=== PATIENT | female | born 1995 | race Caucasian/White ===

== ENCOUNTER 2016-05-07 21:12 | Emergency (ER) | payer OTHER ==
[~2016-05-07] VITALS: Ht 157.5 cm; Wt 66.5 kg
[2016-05-07 21:15] VITALS: BP 145/91; PULSE 102; RESP 16; TEMP 97.8; O2SAT 100
[2016-05-07] MEDS ORDERED: ZOLO100T PO (21:21)
[2016-05-07] MEDS ORDERED: ADDE10 PO (21:21)
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
[2016-06-23] MEDS ORDERED: PREN1CAP7 PO (11:46)
[2016-08-12] MEDS ORDERED: CEPH500C PO (09:47)
[2016-09-30] MEDS ORDERED: CLON0.5T PO (09:57)
[2016-09-30] MEDS ORDERED: DEPO150I IM ×2 (10:16→10:17)
[2016-10-01] MEDS ORDERED: DEPO150I (11:04)
== END 2016-05-07 22:00 | disposition home or self-care (01) ==
LOC: PHED 21:12
DX: O9A.212 Injury, poisoning and certain other consequences of external causes complicating pregnancy, second trimester (principal); S16.1XXA Strain of muscle, fascia and tendon at neck level, initial encounter; V49.40XA Driver injured in collision with unspecified motor vehicles in traffic accident, initial encounter; Z3A.22 22 weeks gestation of pregnancy
CPT/HCPCS: 99283

== ENCOUNTER 2016-08-19 12:18 | Inpatient (IN) | payer MEDICAID, OTHER ==
[~2016-08-19 12:18] MED LIST: ADDE10 PO; CEPH500C PO; PREN1CAP7 PO; ZOLO100T PO
[2016-08-19] MEDS ORDERED: MAGNESIUM SULFATE 4 GM PREMIX 100 ML ONE (14:59)
[2016-08-19] MEDS ORDERED: MAGNESIUM SULFATE 40 GM PREMIX 1,000 ML ONE (14:59)
[2016-08-19] MEDS ORDERED: MAGNESIUM SULFATE 4 GM PREMIX 100 ML IV ONE (15:00)
[2016-08-19] MEDS ORDERED: CALCIUM GLUCONATE 10% 1 GM/10 ML VIAL IV PUSH PRN (15:00)
[2016-08-19] MEDS ORDERED: SODIUM CHLORIDE 0.9% FLUSH 10 ML FLUSH IV FLUSH PRN (15:00)
[2016-08-19] MEDS ORDERED: NIFEdipine 10 MG CAP PO PRN ×3 (15:00→16:00)
[2016-08-19] MEDS ORDERED: ONDANSETRON HCL 4 MG/2 ML VIAL IV PRN (15:00)
--- NOTE | 2016-08-19 15:03 | PD ---
HPI Chief Complaint high blood pressure Date Seen: August 19, 2016 Time Seen: 15:00 Travel History International Travel<30 Days: No Contact w/Intl Traveler<30Days: No History of Present Illness HPI 21 y/o at 37/2 weeks presents [facility]. States she was feeling fine before the visit today. [facility] her BP was measured at 150/89. She was then referred to the ED. Pt denies any headache, changes in vision, RUQ pain. Had some leg swelling recently. Denies any vaginal bleeding, loss of fluid, contractions. Endorses movement. Otherwise, denies any other complaints. Denies chest pain, SOB, leg pain. No problems during this . [facility]. No history of hypertension. Normal BPs throughout until today in office. Para: 0 : 1 History Past Medical History Narrative Medical Anxiety ADD Obstetric History Obstetric History Past Surgical History Surgical History: No Previous Surgery Family History Family History: Negative Social History Alcohol Use: No Tobacco Use: Yes (1/2 PPD) Substance Abuse: No Allergies-Medications (Allergen,Severity, Reaction): Coded Allergies: No Known Allergies (Unverified , 08/19/16) Home Meds Active Scripts Cephalexin 500 Mg [id number] Mg PO TID #21 CAP Ref 0 Prov:Rachel Wellington 08/12/16 W/O Vit A W/ Fe Fumar (Citranatal [place])27-1-260 Mg Cap1 Cap PO DAILY #90 CAP Ref 0 Prov:Jono Trotter MD 06/23/16 Reported Medications Sertraline (Zoloft)100 Mg [id number] Mg PO DAILY #30 TAB Ref 0 05/07/16 Amphetamine-Dextroamphetamine (Adderall)10 Mg Tab10 Mg PO DAILY #30 TAB Ref 0 Avoid late evening doses. Space doses at least 4 to 6 hours if more than once/day dosing. 05/07/16 Review of Systems General / Constitutional: Weight Gain, No: Fever, Weight Loss, Chills Eyes: No: Blurred Vision, Visual changes, Pain HENT: No: Headaches, Lightheadedness Cardiovascular: No: Chest Pain or Discomfort, Palpitations Respiratory: No: Cough, Short of Breath Gastrointestinal: No: Nausea, Vomiting, Diarrhea, Abdominal Pain, Constipation Genitourinary: No: Urgency, Frequency, Dysuria, Pelvic Pain, Discharge, Vaginal Bleeding Musculoskeletal: Edema, No: Cramping Skin: No Rash, No Itching Neurologic: No: Weakness, Dizziness Psychiatric: No: Anxiety, Depression Physical Exam Narrative GENERAL: Well-nourished, well-developed patient. SKIN: Warm and dry. HEAD: Normocephalic and atraumatic. EYES: No scleral icterus. No injection or drainage. ENT: No nasal drainage noted. Mucous membranes pink. Airway patent. NECK: Supple, trachea midline. No JVD. CARDIOVASCULAR: Regular rate and rhythm without murmurs, gallops, or rubs. RESPIRATORY: Breath sounds equal bilaterally. No accessory muscle use. ABDOMEN/GI: Abdomen soft, non-tender, bowel sounds present, no rebound, no guarding Gravid to 37 weeks size GENITOURINARY: External Genitalia: intact and normal in appearance Cervix: thick Dilatation: 0 Effacement: 0 Station: -2 Presentation: vertex Membranes: intact Uterine Contractions: none FHT's: Category: 1 Baseline: 140 Reactive: yes Variability: moderate Decels: none EXTREMITIES: 1+ pitting edema up to mid calf bilaterally BACK: Nontender without obvious deformity. No CVA tenderness. NEUROLOGICAL: Awake and alert. 3+ patellar reflexes Data Data Orders Magnesium Sulfate 4 Gm Premix (Magnesium (08/19/16 14:59) MDM Medical Record Reviewed: Yes Interpretation(s) 21 y/o at 37/2 weeks presents from clinic for hypertension. BP 160/126, 167/110 Category 1 FHT Cervical exam: 1/0/-2 Elevated BPs, edema, hyperreflexia on PE - Admit to L&D for preeclampsia - CBC, CMP, uric acid, UA - Start Mg infusion - Give Hydralazine 10mg IV now - Monitor vitals - Cytotec for cervical ripening - Continuous FHT Matt Resendez MD R1 August 19, 2016 15:03
[2016-08-19] MEDS: LACTATED RINGER'S 1000 ML INJ 1,000 ML IV SCH (15:13)
[2016-08-19] MEDS: hydrALAZINE HCL 20 MG/ML VIAL IV PUSH PRN ×2 (15:14→16:24)
[2016-08-19 15:15] LABS: BACTERIA, URINE RARE /hpf; BLOOD, URINE NEG (NEG); GLUCOSE,URINE NEG (NEG); KETONE, URINE NEG (NEG); MUCUS URINE FEW /lpf (OCC); NITRITE,URINE NEG (NEG); SQUAMOUS EPITHELIAL CELL URINE <1 /hpf (0-5); URINE COLOR YELLOW (YELLW/STRAW)
[2016-08-19 15:16] LABS: COMMENT (UR) CATH-CULTURE IND; CULTURE IF INDICATED CATH CULTURE IND
[2016-08-19] MEDS: MAGNESIUM SULFATE 40 GM PREMIX 1,000 ML IV SCH (15:19)
--- NOTE | 2016-08-19 15:30 | HHI.HP ---
History & Physical H&P HPI Chief Complaint high blood pressure Date Seen: August 19, 2016 Time Seen: 15:00 Travel History International Travel<30 Days: No Contact w/Intl Traveler<30Days: No History of Present Illness HPI 21 y/o at 37/2 weeks presents with [facility] blood [facility]. States she was feeling fine before the visit today. [facility] her BP was measured at 150/89. She was then referred to the ED. Pt denies any headache, changes in vision, RUQ pain. Had some leg swelling recently. Denies any vaginal bleeding, loss of fluid, contractions. Endorses movement. Otherwise, denies any other complaints. Denies chest pain, SOB, leg pain. No problems during this . [facility] No history of hypertension. Normal BPs throughout until today in office. Para: 0 : 1 History (Limited) History Past Medical History Narrative Medical Anxiety ADD Obstetric History Obstetric History Past Surgical History Surgical History: No Previous Surgery Family History Family History: Negative Social History Alcohol Use: No Tobacco Use: Yes (/2 PPD) Substance Abuse: No Allergies-Medications Allergies-Medications (Allergen,Severity, Reaction): Coded Allergies: No Known Allergies (Unverified , 08/19/16) Home Meds Active Scripts Cephalexin 500 Mg [id number] Mg PO TID #21 CAP Ref 0 Prov:Rachel Wellington 08/12/16 W/O Vit A W/ Fe Fumar (Citranatal [place])27-1-260 Mg Cap1 Cap PO DAILY #90 CAP Ref 0 Prov:Jono Trotter MD 06/23/16 Reported Medications Sertraline (Zoloft)100 Mg [id number] Mg PO DAILY #30 TAB Ref 0 05/07/16 Amphetamine-Dextroamphetamine (Adderall)10 Mg Tab10 Mg PO DAILY #30 TAB Ref 0 Avoid late evening doses. Space doses at least 4 to 6 hours if more than once/day dosing. 05/07/16 ROS Review of Systems General / Constitutional: Weight Gain, No: Fever, Weight Loss, Chills Eyes: No: Blurred Vision, Visual changes, Pain HENT: No: Headaches, Lightheadedness Cardiovascular: No: Chest Pain or Discomfort, Palpitations Respiratory: No: Cough, Short of Breath Gastrointestinal: No: Nausea, Vomiting, Diarrhea, Abdominal Pain, Constipation Genitourinary: No: Urgency, Frequency, Dysuria, Pelvic Pain, Discharge, Vaginal Bleeding Musculoskeletal: Edema, No: Cramping Skin: No Rash, No Itching Neurologic: No: Weakness, Dizziness Psychiatric: No: Anxiety, Depression Physical Exam Physical Exam Narrative GENERAL: Well-nourished, well-developed patient. SKIN: Warm and dry. HEAD: Normocephalic and atraumatic. EYES: No scleral icterus. No injection or drainage. ENT: No nasal drainage noted. Mucous membranes pink. Airway patent. NECK: Supple, trachea midline. No JVD. CARDIOVASCULAR: Regular rate and rhythm without murmurs, gallops, or rubs. RESPIRATORY: Breath sounds equal bilaterally. No accessory muscle use. ABDOMEN/GI: Abdomen soft, non-tender, bowel sounds present, no rebound, no guarding Gravid to 37 weeks size GENITOURINARY: External Genitalia: intact and normal in appearance Cervix: thick Dilatation: 0 Effacement: 0 Station: -2 Presentation: vertex Membranes: intact Uterine Contractions: none FHT's: Category: 1 Baseline: 140 Reactive: yes Variability: moderate Decels: none EXTREMITIES: 1+ pitting edema up to mid calf bilaterally BACK: Nontender without obvious deformity. No CVA tenderness. NEUROLOGICAL: Awake and alert. 3+ patellar reflexes Data Data Data Orders Magnesium Sulfate 4 Gm Premix (Magnesium (08/19/16 14:59) [facility] Medical Record Reviewed: Yes Interpretation(s) 21 y/o at 37/2 weeks presents from clinic for hypertension. BP 160/126, 167/110 Category 1 FHT Cervical exam: 1/0/-2 Elevated BPs, edema, hyperreflexia on PE - Admit to L&D for preeclampsia - CBC, CMP, uric acid, UA - Start Mg infusion - Give Hydralazine 10mg IV now - Monitor vitals - Cytotec for cervical ripening - Continuous FHT Matt Resendez MD R1 August 19, 2016 15:30
[2016-08-19 15:33] LABS: ANION GAP 11 MEQ/L (5-15); AST (GOT) 23 U/L (15-37); BICARBONATE 22.8 MEQ/L (21.0-32.0); BLOOD UREA NITROGEN 11 MG/DL (7-18); CHLORIDE 106 MEQ/L (98-107); GLOMERULAR FILTRATION RATE 162 ML/MIN (>89); POTASSIUM 4.2 MEQ/L (3.5-5.1); SODIUM (NA) 140 MEQ/L (136-145)
[2016-08-19 15:37] LABS: ALKALINE PHOSPHATASE 175 U/L (45-117); ALT (GPT) 19 U/L (10-53); TOTAL BILIRUBIN ADULT 0.3 MG/DL (0.2-1.0); URIC ACID 4.6 MG/DL (2.6-6.0)
--- NOTE | 2016-08-19 15:46 | HHI.HP ---
History & Physical H&P Patient is a 21-year-old white female at 37 weeks sent over by Cherry Wellington for elevated blood pressures, she's had no other complaints or problems. heart rate tracing is reactive and she is not scott at this time. Her blood pressures 160/110 and she has no history of hypertension until just this last week or so when it started to go up. Patient denies headache blurry vision spots in front of her eyes right upper quadrant pain however she does have frequent with swelling. Laboratory and urinalysis are negative for preeclamptic signs or problems no protein in the urine she does have 3-4+ pitting edema in the pretibial areas and 3+ DTRs. Cervix is 1 cm thick and high vertex presentation noted Impression-- -induced hypertension Plan--cervical ripening and induction of labor for PIH Alex Cottrell II, MD August 19, 2016 15:46
[2016-08-19] MEDS ORDERED: MISOPROSTOL 100 MCG TAB VAGINAL ONE (16:00)
[2016-08-19] MEDS ORDERED: LABETALOL HCL 100 MG/20 ML VIAL IV PUSH PRN ×3 (16:00→18:30)
[2016-08-19] MEDS ORDERED: LABETALOL HCL 100 MG/20 ML VIAL ONE (17:13)
[2016-08-19 18:11] LABS: HEMATOCRIT 34.4 % (35.0-46.0); MEAN CELL VOLUME 79.6 FL (80.0-100.0); MEAN CORPUSCULAR HEMOGLOBIN 25.4 PG (27.0-34.0); MEAN CORPUSCULAR HGB CONC 31.9 % (32.0-36.0); PLATELET COUNT 205 TH/MM3 (150-450); RED BLOOD COUNT 4.32 MIL/MM3 (4.00-5.30); RED CELL DISTRIBUTION WIDTH 14.5 % (11.6-17.2); REVIEW FLAG FINAL; WHITE BLOOD COUNT 11.2 TH/MM3 (4.0-11.0)
[2016-08-19] MEDS: DEXTROAMPHETAMINE/AMPHETAMINE 10 MG TAB PO SCH (18:21)
[2016-08-19] MEDS: SODIUM CHLORIDE 0.9% FLUSH 10 ML FLUSH IV FLUSH SCH (21:00)
[2016-08-19] MEDS: MISOPROSTOL 25 MCG SUPP VAGINAL SCH (21:01)
[2016-08-19] MEDS: SERTRALINE HCL 50 MG TAB PO SCH (21:01)
[2016-08-19] MEDS: ACETAMINOPHEN 325 MG TAB PO PRN (21:34)
[2016-08-20] VITALS (125 sets, daily range): BP systolic 112–159; BP diastolic 66–117; PULSE 81–242; RESP 5–20; TEMP 97.9–99.1
[2016-08-20] MEDS: MISOPROSTOL 25 MCG SUPP VAGINAL SCH ×6 (01:09→20:00)
[2016-08-20] MEDS: LACTATED RINGER'S 1000 ML INJ 1,000 ML IV SCH ×4 (04:18→18:01)
[2016-08-20] MEDS: ACETAMINOPHEN 325 MG TAB PO PRN (04:59)
--- NOTE | 2016-08-20 08:00 | PD.LABORPN ---
Subjective Subjective HD # 2 BPs -140s/90s AROM clear ,IUPC FSE inserted , cx 2-3/60/-3/ vtx FHR reactive + CTXs seen Begin pit augmentation Objective Objective Pelvic Exam: Cervix: [-] Dilatation: [2-3-] Effacement: [-60] Station: [-3] Presentation: [-vtx] Membranes: [ ruptured]AROM Uterine Contractions: [+] FHT's: Category: [1-] Baseline: [-133] Reactive: [yes-] Variability: [mod-] Decels: [0-] Alex Cottrell II, MD August 20, 2016 08:00
[2016-08-20] MEDS ORDERED: LACTATED RINGER'S 1000 ML INJ 1,000 ML IV PRN (08:01)
[2016-08-20] MEDS ORDERED: MINERAL OIL 10 ML VIAL TOPICAL PRN (08:15)
[2016-08-20] MEDS ORDERED: SODIUM CHLORID 0.9% 500 ML INJ 500 ML IV PRN (08:15)
[2016-08-20] MEDS ORDERED: CITRIC ACID-SODIUM CITRATE LIQ 30 ML UDC PO SCH (08:15)
[2016-08-20] MEDS ORDERED: OXYTOCIN 30 UNITS-500ML PREMIX 500 ML IV SCH (08:15)
[2016-08-20] MEDS ORDERED: OXYTOCIN 30 UNITS-500ML PREMIX 500 ML IV ONE (08:15)
[2016-08-20] MEDS ORDERED: LIDOCAINE HCL 1% 50 ML VIAL I-DERMAL PRN (08:15)
[2016-08-20] MEDS ORDERED: LIDOCAINE HCL 1% 50 ML VIAL INFIL PRN (08:15)
[2016-08-20] MEDS ORDERED: SODIUM CHLOR 0.9% 1000 ML INJ 1,000 ML IV PRN (08:21)
[2016-08-20] MEDS: DEXTROAMPHETAMINE/AMPHETAMINE 30 MG TAB PO SCH (09:00)
[2016-08-20] MEDS: SODIUM CHLORIDE 0.9% FLUSH 10 ML FLUSH IV FLUSH SCH ×2 (09:00→21:00)
--- NOTE | 2016-08-20 10:33 | PD.LABORPN ---
Subjective Subjective Changing shifts Dr. Paetl coming on duty; chart reviewed. This patient is a 21 -year-old 1 para 0 presently at 37+ weeks who was seen in the office yesterday found to have an elevated blood pressure Sent over to triage for further evaluation Laboratory data were normal Liver function studies were not elevated urine negative for protein Count 205 Presently the patient is resting comfortably she is on magnesium sulfate at 2 g per hour Pitocin presently at 4 milliunits internal monitoring present IUPC and scalp electrode States at some point that she would desire an epidural Patient is presently on Adderall she states she takes 30 mg in the morning and 15 mg in the evening her last dose of Adderall was yesterday evening Objective Vital Signs Vital Signs Date Time Temp Pulse Resp B/P Pulse Ox O2 Delivery O2 Flow Rate FiO2 08/20/16 09:45 97.9 20 08/20/16 09:40 96 08/20/16 09:36 84 135/82 08/20/16 09:35 87 08/20/16 09:30 91 08/20/16 09:28 81 147/95 08/20/16 09:27 86 08/20/16 09:25 92 08/20/16 09:20 85 08/20/16 09:15 90 08/20/16 09:10 87 08/20/16 09:05 92 08/20/16 09:01 85 147/109 08/20/16 09:00 100 08/20/16 08:45 131/85 08/20/16 08:40 93 08/20/16 08:35 92 08/20/16 08:30 89 08/20/16 08:14 18 08/20/16 08:14 5 08/20/16 08:10 97 08/20/16 08:05 93 08/20/16 08:01 93 118/83 08/20/16 08:00 90 Objective Pelvic Exam: Cervix: [-] Midline Dilatation: [-] 4 cm Effacement: [-] 90% effaced Station: [-] -1 station Presentation: [-] Vertex's with a small amount of What Membranes: [ ruptured previously artificial rupture of membranes with placement of the internal catheters fluid is clear Uterine Contractions: [-] Every 2-3 minutes at greater than 50 mmHg FHT's: Category: [-] 1 Baseline: [-]130 Reactive: [-]+ Accelerations up to 160 Variability: [-] Moderate ongk-[id number] variability Decels: [-] 0 Assessment/Plan Assessment and Plan Assessment; 21-year-old at 37 weeks Category 1 tracing PIH Cigarette smoker GBS is negative History of ADD presently on Adderall Progression of labor Plan; Continue present management Epidural at patient's request Anticipate vaginal delivery Anne Sanchez MD August 20, 2016 10:33
[2016-08-20] MEDS ORDERED: fentaNYL 2MCG-BUPIV 0.125% INJ 100 ML ONE (10:44)
[2016-08-20] MEDS ORDERED: LABETALOL HCL 100 MG/20 ML VIAL IV PUSH PRN (11:00)
[2016-08-20] MEDS ORDERED: ePHEDrine/NS 25 MG/5 ML SYR ONE (11:25)
[2016-08-20] MEDS: MAGNESIUM SULFATE 40 GM PREMIX 1,000 ML IV SCH (11:50)
[2016-08-20] MEDS ORDERED: ePHEDrine/NS 25 MG/5 ML SYR IV PRN (12:00)
[2016-08-20] MEDS ORDERED: DO NOT ADMINISTER ANTICOAGULANTS PRN (12:00)
[2016-08-20] MEDS ORDERED: fentaNYL 2MCG-BUPIV 0.125% 100 ML EPIDURAL SCH (12:00)
[2016-08-20] MEDS ORDERED: NO SYSTEM NARCOTICS PRN (12:00)
--- NOTE | 2016-08-20 13:59 | PD.LABORPN ---
Subjective Subjective Patient is comfortable with an epidural Objective Vital Signs Vital Signs Date Time Temp Pulse Resp B/P Pulse Ox O2 Delivery O2 Flow Rate FiO2 08/20/16 12:55 85 08/20/16 12:50 87 08/20/16 12:45 83 08/20/16 12:45 97.9 94 18 134/96 08/20/16 12:40 85 08/20/16 12:35 84 08/20/16 12:30 89 08/20/16 12:30 87 138/96 08/20/16 12:25 84 08/20/16 12:20 89 08/20/16 12:15 86 135/92 08/20/16 12:15 89 08/20/16 10:10 97 08/20/16 10:05 96 08/20/16 10:00 86 08/20/16 10:00 91 132/84 08/20/16 09:45 97.9 20 08/20/16 09:40 96 08/20/16 09:36 84 135/82 08/20/16 09:35 87 08/20/16 09:30 91 08/20/16 09:28 81 147/95 08/20/16 09:27 86 08/20/16 09:25 92 08/20/16 09:20 85 08/20/16 09:15 90 08/20/16 09:10 87 08/20/16 09:05 92 08/20/16 09:01 85 147/109 08/20/16 09:00 100 08/20/16 08:45 131/85 08/20/16 08:40 93 08/20/16 08:35 92 08/20/16 08:30 89 08/20/16 08:14 18 08/20/16 08:14 5 08/20/16 08:10 97 08/20/16 08:05 93 08/20/16 08:01 93 118/83 08/20/16 08:00 90 Objective Pelvic Exam: Cervix: [-] Midline Dilatation: [-] 6 cm Effacement: [-] 100% effaced Station: [-] -1 Presentation: [-] Vertex small amount of Membrane ruptured] Uterine Contractions: [-] Q3 to 4 minutes FHT's: Category: [-] Fluctuates between category 1 and 2 Baseline: [-] 130 Reactive: [-] + Positive accelerations as well as accelerations with acoustic stimulation Variability: [-] Moderate afpp-ia-qrfi variability Decels: [-] Early to variable decelerations Assessment/Plan Assessment and Plan Assessment Progression of labor Variable decelerations Plan Positional change IV fluid hydration Amnioinfusion Close monitoring Anne Sanchez MD August 20, 2016 13:59
--- NOTE | 2016-08-20 14:20 | PD.LABORPN ---
Subjective Subjective Patient continues to be comfortable with her epidural she is starting to feel pressure Objective Vital Signs Vital Signs Date Time Temp Pulse Resp B/P Pulse Ox O2 Delivery O2 Flow Rate FiO2 08/20/16 13:40 88 08/20/16 12:55 85 08/20/16 12:50 87 08/20/16 12:45 83 08/20/16 12:45 97.9 94 18 134/96 08/20/16 12:40 85 08/20/16 12:35 84 08/20/16 12:30 89 08/20/16 12:30 87 138/96 08/20/16 12:25 84 08/20/16 12:20 89 08/20/16 12:15 86 135/92 08/20/16 12:15 89 08/20/16 10:10 97 08/20/16 10:05 96 08/20/16 10:00 86 08/20/16 10:00 91 132/84 08/20/16 09:45 97.9 20 08/20/16 09:40 96 08/20/16 09:36 84 135/82 08/20/16 09:35 87 08/20/16 09:30 91 08/20/16 09:28 81 147/95 08/20/16 09:27 86 08/20/16 09:25 92 08/20/16 09:20 85 08/20/16 09:15 90 08/20/16 09:10 87 08/20/16 09:05 92 08/20/16 09:01 85 147/109 08/20/16 09:00 100 08/20/16 08:45 131/85 08/20/16 08:40 93 08/20/16 08:35 92 08/20/16 08:30 89 08/20/16 08:14 18 08/20/16 08:14 5 08/20/16 08:10 97 08/20/16 08:05 93 08/20/16 08:01 93 118/83 08/20/16 08:00 90 Objective Pelvic Exam: Cervix: [-] Midline Dilatation: [-] 8 cm Effacement: [-] 100% effaced Station: [-] -1 station Presentation: [-] Vertex with some molding Membranes: ruptured] Uterine Contractions: [-] Every 2-4 FHT's: Category: [-] 2 Baseline: [-] 130 Reactive: [-] + Variability: [-] Moderate [id number] variability Decels: [-] Variables to continue to be early to variable Amnioinfusion running Assessment/Plan Assessment and Plan Assessment Progression of labor Amnioinfusion running presently Variable decelerations Plan Continue with positional changes Amnioinfusion Pitocin discontinued O2 IV fluids hydration Anne Sanchez MD August 20, 2016 14:20
[2016-08-20] MEDS: DEXTROAMPHETAMINE/AMPHETAMINE 10 MG TAB PO SCH (15:00)
[2016-08-20] MEDS ORDERED: DIPHTH/TETANUS/ACEL PERTUSSIS (BOOSTER) 0.5 ML VIAL/PFS IM ONE (16:00)
[2016-08-20] MEDS ORDERED: MEASLES, MUMPS, RUBELLA VACCINE 0.5 ML VIAL SQ ONE (16:00)
--- NOTE | 2016-08-20 18:56 | PD.LABORPN ---
Subjective Subjective Patient feeling more pressure uncomfortable with the contractions Objective Vital Signs Vital Signs Date Time Temp Pulse Resp B/P Pulse Ox O2 Delivery O2 Flow Rate FiO2 08/20/16 18:30 104 08/20/16 18:30 114 144/100 08/20/16 18:25 113 08/20/16 18:23 113 152/99 08/20/16 18:20 120 08/20/16 18:15 126 08/20/16 18:15 113 159/117 08/20/16 18:02 18 08/20/16 17:30 97 141/85 08/20/16 17:30 97 08/20/16 17:25 90 08/20/16 17:20 95 08/20/16 17:15 92 08/20/16 17:15 91 138/89 08/20/16 17:10 88 08/20/16 17:05 88 08/20/16 17:00 88 131/90 08/20/16 17:00 91 08/20/16 16:40 102 08/20/16 16:35 95 08/20/16 16:30 97 133/93 08/20/16 16:30 100 08/20/16 16:20 107 08/20/16 16:15 105 08/20/16 16:15 105 139/100 08/20/16 16:10 90 08/20/16 16:05 95 08/20/16 16:00 102 08/20/16 16:00 102 128/66 08/20/16 15:55 100 08/20/16 15:50 100 08/20/16 15:45 16 08/20/16 15:45 97 112/67 08/20/16 15:45 95 08/20/16 15:41 98.6 08/20/16 15:40 98 08/20/16 15:35 106 08/20/16 15:30 96 08/20/16 15:30 99 137/86 08/20/16 15:25 95 08/20/16 15:20 99 08/20/16 15:15 93 08/20/16 15:15 98 138/86 08/20/16 15:10 106 08/20/16 15:05 104 08/20/16 15:00 105 08/20/16 15:00 118 149/99 08/20/16 14:55 104 08/20/16 14:51 95 150/91 08/20/16 14:50 99 08/20/16 14:45 96 08/20/16 14:45 97 08/20/16 14:43 98.6 20 08/20/16 14:34 98 131/83 08/20/16 14:31 94 08/20/16 14:30 90 08/20/16 14:25 95 08/20/16 14:20 97 08/20/16 14:15 103 140/92 08/20/16 14:15 89 08/20/16 14:10 92 08/20/16 14:06 97 121/72 08/20/16 14:05 94 08/20/16 14:00 94 141/109 08/20/16 14:00 242 08/20/16 13:55 84 08/20/16 13:50 100 08/20/16 13:45 96 08/20/16 13:45 93 137/83 08/20/16 13:40 88 08/20/16 13:25 88 08/20/16 13:20 93 08/20/16 13:15 84 115/82 08/20/16 13:15 82 08/20/16 12:55 85 08/20/16 12:50 87 08/20/16 12:45 83 08/20/16 12:45 97.9 94 18 134/96 08/20/16 12:40 85 08/20/16 12:35 84 08/20/16 12:30 89 08/20/16 12:30 87 138/96 08/20/16 12:25 84 08/20/16 12:20 89 08/20/16 12:15 86 135/92 08/20/16 12:15 89 Objective Pelvic Exam: Cervix: [-] Dilatation: [-] 10 cm small anterior lip Effacement: [-] 100% Station: [-] +1 station Presentation: [-] Vertex Membranes: ruptured] Uterine Contractions: [-] 2-3 minutes FHT's: Category: [-] 2 Baseline: [-] 130 Reactive: [-] + Positive accelerations Variability: [-] Moderate [id number]-om-ljng variability Decels: [-] Patient having variable decelerations with contractions starting to push Assessment/Plan Assessment and Plan Monitor patient closely in the second stage of labor Anticipate vaginal delivery No meconium Anne Sanchez MD August 20, 2016 18:56
[2016-08-20] MEDS: SERTRALINE HCL 50 MG TAB PO SCH (21:00)
--- NOTE | 2016-08-20 21:28 | PD.OB.DELI ---
Delivery Date: August 20, 2016 Anesthesia: Epidural Episiotomy: Midline Vaginal Delivery: Normal Presentation: Occiput anterior Nuchal Cord: None Delayed cord clamping (45 sec): No Infant: Female One Minute : 7 Five Minute : 8 Weight: 3090 Placenta: Spontaneous delivery, Intact, 3 vessel cord Laceration: Episiotomy Repair: Chromic running Additional Information Patient progressed to completely dilated completely effaced at a +4 station delivered over midline episiotomy a viable female infant weight 6 lbs. 13 oz.= 3090 grams. No delayed cord clamping as the baby was somewhat limits secondary to magnesium sulfate cord doubly clamped and cut and infant handed over to the waiting nursing staff Within the delivered spontaneously and intact No lacerations Estimated blood loss 150 cc uterus firm no active bleeding Midline episiotomy repaired with 2-0 chromic suture under local lidocaine infiltration no extension of the episiotomy Baby with Apgars of 7 at 1 minute and 8 at 5 minutes Mother stable baby stable We'll continue mother on magnesium sulfate for 24 hours An catheter replaced urine is clear and adequate Anne Sanchez MD August 20, 2016 21:28
[2016-08-20] MEDS ORDERED: ONDANSETRON ODT 4 MG TAB PO PRN (21:30)
[2016-08-20] MEDS ORDERED: BENZOCAINE 20% TOPICAL SPRAY 60 ML CAN TOPICAL PRN (21:30)
[2016-08-20] MEDS ORDERED: DOCUSATE SODIUM 50 MG/SENNA 8.6 MG TAB PO PRN (21:30)
[2016-08-20] MEDS ORDERED: oxyCODONE/ACETAMINOPHEN 5 MG/325 MG TAB PO PRN ×2 (21:30)
[2016-08-20] MEDS ORDERED: WITCH HAZEL 50%/GLYCERIN 12.5% 40 PAD JAR TOPICAL PRN (21:30)
[2016-08-20] MEDS ORDERED: ACETAMINOPHEN 325 MG TAB PO PRN (21:30)
[2016-08-20] MEDS ORDERED: ZOLPIDEM TARTRATE 5 MG TAB PO PRN (21:30)
[2016-08-20] MEDS ORDERED: IBUPROFEN 600 MG TAB PO PRN (21:30)
[2016-08-20] MEDS ORDERED: ALUMINUM/MAGNESIUM/SIMETH 30 ML CUP PO PRN (21:30)
[2016-08-20] MEDS ORDERED: AMMONIA AROMATIC INHALANT 0.33 ML ONE (23:08)
[2016-08-21] VITALS (96 sets, daily range): BP systolic 106–137; BP diastolic 60–92; PULSE 81–107; RESP 16–18; TEMP 97.8–98.3; O2SAT 99–100
[2016-08-21] MEDS: MISOPROSTOL 25 MCG SUPP VAGINAL SCH ×4 (08:00→20:00)
[2016-08-21] MEDS: SODIUM CHLORIDE 0.9% FLUSH 10 ML FLUSH IV FLUSH SCH ×2 (09:00→20:31)
[2016-08-21] MEDS: MAGNESIUM SULFATE 40 GM PREMIX 1,000 ML IV SCH ×2 (09:20→13:25)
--- NOTE | 2016-08-21 09:44 | HHI.OB ---
Subjective Post Day: 1 Remarks The patient is a 21-year-old G1 now P1, who was induced at 37 weeks for preeclampsia. She delivered on 08/20/2016, at approximately 2100 hrs. She is on magnesium gtt, and her blood pressures have normalized and are at goal. She denies any headaches, change in vision, chest pain, palpitations, shortness of breath, or pain under her ribs. She had a puddle of blood on the bed overnight. The bleeding has since gotten less. (Waqar Callahan MD R2) Remarks I rounded on the patient. I rounded with the resident. I reviewed the resident' s assessment and plan of care for this patient. I am in agreement with the plan of care for this patient. (Anne Sanchez MD) Objective Vitals/I&O Vital Signs Date Time Temp Pulse Resp B/P Pulse Ox O2 Delivery O2 Flow Rate FiO2 08/21/16 09:11 97.8 08/21/16 09:00 81 106/64 08/21/16 08:00 86 113/60 08/21/16 07:00 87 114/63 08/21/16 06:00 95 116/83 08/21/16 05:00 96 116/80 08/21/16 04:00 98.0 18 08/21/16 04:00 96 120/79 08/21/16 03:00 93 131/91 08/21/16 02:00 96 125/76 08/21/16 01:00 97 137/90 08/21/16 00:00 93 129/81 08/20/16 23:30 98.9 18 08/20/16 23:28 98 135/85 08/20/16 22:30 101 136/83 08/20/16 22:15 102 144/96 08/20/16 22:00 101 145/95 08/20/16 22:00 18 08/20/16 21:47 102 144/97 08/20/16 21:45 18 08/20/16 21:32 145/92 08/20/16 21:25 107 128/72 08/20/16 21:25 99.1 08/20/16 20:31 98.1 08/20/16 20:25 126 08/20/16 20:20 114 5/12/17 20:15 121 08/20/16 20:15 102 150/94 08/20/16 20:10 104 08/20/16 20:05 100 08/20/16 20:00 96 08/20/16 20:00 109 140/93 08/20/16 19:55 97 08/20/16 19:50 94 08/20/16 19:45 100 146/92 08/20/16 19:45 93 08/20/16 19:40 102 08/20/16 19:35 100 08/20/16 19:30 102 149/93 08/20/16 19:30 100 08/20/16 19:25 104 08/20/16 19:20 108 08/20/16 19:15 109 08/20/16 19:15 123 151/97 08/20/16 19:10 103 08/20/16 19:05 103 08/20/16 19:00 105 08/20/16 19:00 112 152/95 08/20/16 18:55 108 08/20/16 18:51 111 155/105 08/20/16 18:50 107 08/20/16 18:45 102 08/20/16 18:40 97 08/20/16 18:35 112 08/20/16 18:30 104 08/20/16 18:30 114 144/100 08/20/16 18:25 113 08/20/16 18:23 113 152/99 08/20/16 18:20 120 08/20/16 18:15 126 08/20/16 18:15 113 159/117 08/20/16 18:10 100 08/20/16 18:02 18 08/20/16 17:30 97 141/85 08/20/16 17:30 97 08/20/16 17:25 90 08/20/16 17:20 95 08/20/16 17:15 92 08/20/16 17:15 91 138/89 08/20/16 17:10 88 08/20/16 17:05 88 08/20/16 17:00 88 131/90 08/20/16 17:00 91 08/20/16 16:40 102 08/20/16 16:35 95 08/20/16 16:30 97 133/93 08/20/16 16:30 100 08/20/16 16:20 107 08/20/16 16:15 105 08/20/16 16:15 105 139/100 08/20/16 16:10 90 08/20/16 16:05 95 08/20/16 16:00 102 08/20/16 16:00 102 128/66 08/20/16 15:55 100 08/20/16 15:50 100 08/20/16 15:45 16 08/20/16 15:45 97 112/67 08/20/16 15:45 95 08/20/16 15:41 98.6 08/20/16 15:40 98 08/20/16 15:35 106 08/20/16 15:30 96 08/20/16 15:30 99 137/86 08/20/16 15:25 95 08/20/16 15:20 99 08/20/16 15:15 93 08/20/16 15:15 98 138/86 08/20/16 15:10 106 08/20/16 15:05 104 08/20/16 15:00 105 08/20/16 15:00 118 149/99 08/20/16 14:55 104 08/20/16 14:51 95 150/91 08/20/16 14:50 99 08/20/16 14:45 96 08/20/16 14:45 97 08/20/16 14:43 98.6 20 08/20/16 14:34 98 131/83 08/20/16 14:31 94 08/20/16 14:30 90 08/20/16 14:25 95 08/20/16 14:20 97 08/20/16 14:15 103 140/92 08/20/16 14:15 89 08/20/16 14:10 92 08/20/16 14:06 97 121/72 08/20/16 14:05 94 08/20/16 14:00 94 141/109 08/20/16 14:00 242 08/20/16 13:55 84 08/20/16 13:50 100 08/20/16 13:45 96 08/20/16 13:45 93 137/83 08/20/16 13:40 88 08/20/16 13:25 88 08/20/16 13:20 93 08/20/16 13:15 84 115/82 08/20/16 13:15 82 5/12/17 12:55 85 08/20/16 12:50 87 08/20/16 12:45 83 08/20/16 12:45 97.9 94 18 134/96 08/20/16 12:40 85 08/20/16 12:35 84 08/20/16 12:30 89 08/20/16 12:30 87 138/96 08/20/16 12:25 84 08/20/16 12:20 89 08/20/16 12:15 86 135/92 08/20/16 12:15 89 08/20/16 10:10 97 08/20/16 10:05 96 08/20/16 10:00 86 08/20/16 10:00 91 132/84 08/20/16 09:45 97.9 20 08/20/16 09:40 96 Objective Remarks GENERAL: Well-nourished, well-developed patient. CARDIOVASCULAR: Regular rate and rhythm without murmurs, gallops, or rubs. RESPIRATORY: Breath sounds equal bilaterally. No accessory muscle use. ABDOMEN/GI: Abdomen soft, non-tender. Fundus: Firm, non-tender at umbilicus. GENITOURINARY: Light to moderate bleeding. EXTREMITIES: No cyanosis or edema, non-tender, without signs of DVT. Medications and IVs Current Medications Medications (Trade) Dose Ordered Sig/Farzad Route Start Time Stop Time Status Last Admin (NS Flush) 2 ml UNSCH PRN IV FLUSH 08/19/16 15:00 Sodium Chloride 2 ml 2 ml BID IV FLUSH 08/19/16 21:00 (Magnesium Sulfate 40 Gm Premix) 1,000 ml @ 50 mls/hr Q20H IV 08/19/16 14:58 08/21/16 09:20 (Calcium Gluconate Inj) 1 gm UNSCH PRN IV PUSH 08/19/16 15:00 (Zofran Inj) 4 mg Q6H PRN IV 08/19/16 15:00 08/20/16 08:31 (Cytotec Supp) 25 mcg Q4H VAGINAL 08/19/16 20:00 08/20/16 04:56 (Zoloft) 50 mg HS PO 08/19/16 21:00 08/19/16 21:01 (Adderall) 30 mg DAILY PO 08/20/16 09:00 (Adderall) 15 mg DAILY@15 PO 08/19/16 15:00 08/19/16 18:21 Acetaminophen 650 mg 650 mg Q4H PRN PO 08/19/16 21:30 08/20/16 04:59 Lactated Ringer's 1,000 ml @ 125 mls/hr Q8H IV 08/20/16 08:01 08/20/16 18:01 Lactated Ringer's 1,000 ml @ 3,000 mls/hr Q20M PRN IV 08/20/16 08:01 (NS 1000 ml Inj) 1,000 ml @ 100 mls/hr Q10H PRN IV 08/20/16 08:21 (fentaNYL INJ) 50 mcg Q1H PRN IV PUSH 08/20/16 08:15 08/20/16 08:31 (fentaNYL INJ) 100 mcg Q1H PRN IV PUSH 08/20/16 08:15 Mineral Oil 10 ml 10 ml UNSCH PRN TOPICAL 08/20/16 08:15 (Pitocin 30 Units-NS 500 ml Premix) 500 ml @ 0 mls/hr TITRATE IV 08/20/16 08:15 08/20/16 08:39 Miscellaneous Information No systemic narcotics to be given except... UNSCH PRN .XX 08/20/16 12:00 08/21/16 11:59 Miscellaneous Information DO NOT ADMINISTER ANY ANTICOAGUL... UNSCH PRN .XX 08/20/16 12:00 08/21/16 11:59 (fentaNYL 2MCG-BUPIV 0.125% INJ) 100 ml @ 0 mls/hr TITRATE EPIDURAL 08/20/16 12:00 08/20/16 18:02 (ePHEDrine/NS 25 MG/5 ML SYR) 10 mg UNSCH PRN IV 08/20/16 12:00 08/21/16 11:59 (Tylenol) 650 mg Q4H PRN PO 08/20/16 21:30 (Motrin) 600 mg Q6H PRN PO 08/20/16 21:30 08/21/16 05:29 (Percocet 5-325 Mg) 1 tab Q4H PRN PO 08/20/16 21:30 (Percocet 5-325 Mg) 2 tab Q4H PRN PO 08/20/16 21:30 08/21/16 05:30 (Americaine 20% Top Spr) 1 spray Q4H PRN TOPICAL 08/20/16 21:30 (Tucks Pads) 1 applic QID PRN TOPICAL 08/20/16 21:30 (Marti-Colace) 2 tab Q12H PRN PO 08/20/16 21:30 (Ambien) 5 mg HS PRN PO 08/20/16 21:30 (Mag-Al Plus Susp Liq) 15 ml Q8H PRN PO 08/20/16 21:30 (Zofran Odt) 4 mg Q6H PRN PO 08/20/16 21:30 (Waqar Callahan MD R2) Assessment/Plan Problem List: (1) Pre-eclampsia Assessment and Plan 20 yo female s/p vaginal delivery after induction for preeclampsia PPD 1. She delivered on 08/20/2016 at approximately 21:00 hours. - complicated by preeclampsia. She continues magnesium therapy until 2100 hrs. tonight 08/21. Will monitor for magnesium toxicity with neuro checks every 2 hours. - bleeding: Had a puddle of blood on the bed overnight, since this time her bleeding has decreased. We will check a morning CBC. The patient appeared pale this morning. However vital signs are at goal for age. Pulse : 87, BP 113/60. - AFVSS - Motrin and Percocet PRN pain - Pelvic rest x 6 wks - Contraception: Will discuss upon discharge. Anticipate D/C in 1-2 days. keri Patel (Waqar Callahan MD R2) Waqar Callahan MD R2 August 21, 2016 09:44 Anne Sanchez MD August 21, 2016 09:57
[2016-08-21] MEDS: DEXTROAMPHETAMINE/AMPHETAMINE 30 MG TAB PO SCH (09:57)
[2016-08-21] MEDS: LACTATED RINGER'S 1000 ML INJ 1,000 ML IV SCH ×2 (09:59→16:01)
[2016-08-21 11:07] LABS: AUTOMATED NEUTROPHIL # 16.4 TH/MM3 (1.8-7.7); BASOPHIL % 0.2 % (0.0-2.0); EOSINOPHIL % 0.3 % (0.0-4.0); HEMATOCRIT 23.7 % (35.0-46.0); HEMO FLAGS DIFF FINAL; LYMPH % 8.5 % (9.0-44.0); LYMPHOCYTE # 1.6 TH/MM3 (1.0-4.8); MEAN CELL VOLUME 79.1 FL (80.0-100.0); MEAN CORPUSCULAR HEMOGLOBIN 26.3 PG (27.0-34.0); MEAN CORPUSCULAR HGB CONC 33.2 % (32.0-36.0); MONO % 6.7 % (0.0-8.0); NEUT % 84.3 % (16.0-70.0); PLATELET COUNT 200 TH/MM3 (150-450); RED BLOOD COUNT 2.99 MIL/MM3 (4.00-5.30); RED CELL DISTRIBUTION WIDTH 14.9 % (11.6-17.2); WHITE BLOOD COUNT 19.4 TH/MM3 (4.0-11.0)
[2016-08-21] MEDS ORDERED: SIMETHICONE 80 MG CHEWABLE TAB CHEW PRN (12:45)
--- NOTE | 2016-08-21 12:45 | HHI.PR ---
[employer] Note Note PPD# 1 Post PRE E on Magnesium sulfate Concern for bleeding overnight due to increased lochia. HB 7.9/23.7 Admission h/h: . Subjective: No complaints, pain well controlled, voiding well. She is currently when she can as the is in the NICU. She is doing well, no flatus, tolerating a liquid diet. Objective: Vital Signs Date Time Temp Pulse Resp B/P Pulse Ox O2 Delivery O2 Flow Rate FiO2 08/21/16 12:07 18 08/21/16 12:00 97.9 08/21/16 12:00 90 113/77 Fundus: firm Lochia: mild to moderate amount Breasts: no problems, breast/bottle feeding Abd: soft, nt, distended, +BS VE: no edema, sutures in tact Extremities: no calf tenderness, reflexes brisk, edema 1+ Impression: PPD # 1, s/p with PreE, currenly on magnesium sulfate to d/c at 9:30p Plan: Continue routine post care Decrease magnesium to 1g now Continue magnesium until 9:30p Repeat cbc in 4 hours to ensure stable Mylicon for gas discussed current care with pt and family in depth counseled about magnesium and precautions Mary Antonio MD August 21, 2016 12:45
[2016-08-21] MEDS: DEXTROAMPHETAMINE/AMPHETAMINE 10 MG TAB PO SCH (16:09)
[2016-08-21 18:58] LABS: AUTOMATED NEUTROPHIL # 14.5 TH/MM3 (1.8-7.7); BASOPHIL % 0.2 % (0.0-2.0); EOSINOPHIL # 0.2 TH/MM3 (0-0.4); HEMATOCRIT 24.9 % (35.0-46.0); HEMO FLAGS DIFF FINAL; LYMPH % 12.6 % (9.0-44.0); LYMPHOCYTE # 2.3 TH/MM3 (1.0-4.8); MEAN CELL VOLUME 79.8 FL (80.0-100.0); MEAN CORPUSCULAR HEMOGLOBIN 25.7 PG (27.0-34.0); MEAN CORPUSCULAR HGB CONC 32.2 % (32.0-36.0); MONO % 7.2 % (0.0-8.0); PLATELET COUNT 228 TH/MM3 (150-450); RED BLOOD COUNT 3.13 MIL/MM3 (4.00-5.30); RED CELL DISTRIBUTION WIDTH 15.1 % (11.6-17.2); WHITE BLOOD COUNT 18.4 TH/MM3 (4.0-11.0)
[2016-08-21] MEDS: SERTRALINE HCL 50 MG TAB PO SCH (20:31)
[2016-08-22 07:40] VITALS: BP 138/88; PULSE 98; RESP 18; TEMP 98.2
--- NOTE | 2016-08-22 08:43 | HHI.OB ---
Subjective Post Day: 2 Remarks 21 year old female s/p NVD at 37/3 wks gestation, PPD 2. AFVSS. Patient reports she is feeling well. Bleeding is decreasing and pain is well- controlled. She is breast feeding and bonding well with baby. Had elevated blood pressure during period and was treated with magnesium; Mg discontinued at ~2130 on 03/23. Has not been up to walk around much yet. Has voided urine since D/C of An. She is tolerating a diet without nausea or vomiting. She has not had a bowel movement. She has passed gas. Denies chest pain, dysuria, shortness of breath, or calf pain. (Clay Moore MD R1) Objective Vitals/I&O Vital Signs Date Time Temp Pulse Resp B/P Pulse Ox O2 Delivery O2 Flow Rate FiO2 08/22/16 07:40 98.2 98 18 138/88 08/21/16 21:00 107 130/73 08/21/16 20:00 104 135/85 08/21/16 19:19 98.1 18 08/21/16 19:15 92 99 08/21/16 19:10 94 100 08/21/16 19:05 96 100 08/21/16 19:00 97 130/75 100 08/21/16 19:00 94 08/21/16 18:45 18 08/21/16 18:45 106 100 08/21/16 18:10 100 08/21/16 18:10 97 08/21/16 18:05 97 99 08/21/16 18:00 102 135/86 100 08/21/16 18:00 93 08/21/16 17:55 100 100 08/21/16 17:50 100 100 08/21/16 17:45 103 100 08/21/16 17:40 106 100 08/21/16 17:35 100 100 08/21/16 17:30 97 100 08/21/16 17:28 16 08/21/16 17:25 97 100 08/21/16 17:24 98.3 08/21/16 17:20 99 100 08/21/16 17:15 98 100 08/21/16 17:10 99 100 08/21/16 17:05 100 100 08/21/16 17:00 101 5/13/17 17:00 101 128/85 99 513/17 16:55 98 100 513/17 16:50 96 100 513/17 16:45 97 100 513/17 16:40 97 100 513/17 16:35 99 100 513/17 16:30 97 100 513/17 16:25 103 100 513/17 16:24 16 513/17 16:20 106 100 13/17 16:15 104 100 13/17 16:10 103 100 513/17 16:05 99 100 513/17 16:00 93 13/17 16:00 97 122/83 100 13/17 15:55 95 100 13/17 15:50 95 100 13/17 15:45 97 100 13/17 15:40 95 100 13/17 15:35 96 100 13/17 15:30 95 100 13/17 15:25 95 100 13/17 15:20 95 100 13/17 15:15 94 100 13/17 15:10 96 100 13/17 15:05 94 100 13/17 15:00 98 128/90 100 13/17 15:00 96 13/17 14:55 99 100 13/17 14:50 95 100 13/17 14:45 103 100 13/17 14:41 16 13/17 14:41 92 124/75 13/17 14:40 96 100 13/17 14:35 98 100 13/17 14:30 95 100 13/17 14:25 91 100 13/17 14:20 97 100 13/17 14:15 104 100 13/17 14:10 95 100 13/17 14:05 100 100 13/17 14:00 104 131/90 100 513/17 14:00 102 513/17 13:55 103 100 513/17 13:50 103 100 513/17 13:45 95 100 513/17 13:40 97 100 513/17 13:35 94 100 513/17 13:30 94 100 513/17 13:25 94 100 513/17 13:20 93 100 08/21/16 13:15 93 100 08/21/16 13:10 93 100 08/21/16 13:05 97 99 08/21/16 13:00 97 08/21/16 13:00 96 128/85 100 08/21/16 12:55 93 100 08/21/16 12:50 93 100 08/21/16 12:45 96 100 08/21/16 12:07 18 08/21/16 12:00 97.9 08/21/16 12:00 90 113/77 08/21/16 11:08 16 08/21/16 11:08 18 08/21/16 11:00 85 126/76 08/21/16 10:01 89 124/70 08/21/16 10:00 92 125/92 08/21/16 09:59 18 08/21/16 09:11 97.8 08/21/16 09:00 81 106/64 Objective Remarks GENERAL: Well-nourished, well-developed patient. CARDIOVASCULAR: Regular rate and rhythm. Soft II/ blowing MARIBEL at LUSB. RESPIRATORY: Breath sounds equal bilaterally. No accessory muscle use. ABDOMEN/GI: Abdomen soft, non-tender. Fundus: Firm, non-tender at umbilicus. GENITOURINARY: Light to moderate bleeding. EXTREMITIES: No cyanosis or edema, non-tender, without signs of DVT. Medications and IVs Current Medications Medications (Trade) Dose Ordered Sig/Farzad Route Start Time Stop Time Status Last Admin (NS Flush) 2 ml UNSCH PRN IV FLUSH 08/19/16 15:00 Sodium Chloride 2 ml 2 ml BID IV FLUSH 08/19/16 21:00 08/21/16 20:31 (Magnesium Sulfate 40 Gm Premix) 1,000 ml @ 25 mls/hr Q24H IV 08/19/16 14:58 08/21/16 13:25 (Calcium Gluconate Inj) 1 gm UNSCH PRN IV PUSH 08/19/16 15:00 (Zofran Inj) 4 mg Q6H PRN IV 08/19/16 15:00 08/20/16 08:31 (Cytotec Supp) 25 mcg Q4H VAGINAL 08/19/16 20:00 08/20/16 04:56 (Zoloft) 50 mg HS PO 08/19/16 21:00 08/21/16 20:31 (Adderall) 30 mg DAILY PO 08/20/16 09:00 08/21/16 09:57 (Adderall) 15 mg DAILY@15 PO 08/19/16 15:00 08/21/16 16:09 Acetaminophen 650 mg 650 mg Q4H PRN PO 08/19/16 21:30 08/20/16 04:59 Lactated Ringer's 1,000 ml @ 125 mls/hr Q8H IV 08/20/16 08:01 08/21/16 09:59 Lactated Ringer's 1,000 ml @ 3,000 mls/hr Q20M PRN IV 08/20/16 08:01 (NS 1000 ml Inj) 1,000 ml @ 100 mls/hr Q10H PRN IV 08/20/16 08:21 (fentaNYL INJ) 50 mcg Q1H PRN IV PUSH 08/20/16 08:15 08/20/16 08:31 (fentaNYL INJ) 100 mcg Q1H PRN IV PUSH 08/20/16 08:15 Mineral Oil 10 ml 10 ml UNSCH PRN TOPICAL 08/20/16 08:15 Oxytocin 500 ml @ 0 mls/hr TITRATE IV 08/20/16 08:15 08/20/16 08:39 (fentaNYL 2MCG-BUPIV 0.125% INJ) 100 ml @ 0 mls/hr TITRATE EPIDURAL 08/20/16 12:00 08/20/16 18:02 (Tylenol) 650 mg Q4H PRN PO 08/20/16 21:30 (Motrin) 600 mg Q6H PRN PO 08/20/16 21:30 08/21/16 05:29 (Percocet 5-325 Mg) 1 tab Q4H PRN PO 08/20/16 21:30 (Percocet 5-325 Mg) 2 tab Q4H PRN PO 08/20/16 21:30 08/21/16 05:30 (Americaine 20% Top Spr) 1 spray Q4H PRN TOPICAL 08/20/16 21:30 (Tucks Pads) 1 applic QID PRN TOPICAL 08/20/16 21:30 (Marti-Colace) 2 tab Q12H PRN PO 08/20/16 21:30 (Ambien) 5 mg HS PRN PO 08/20/16 21:30 (Mag-Al Plus Susp Liq) 15 ml Q8H PRN PO 08/20/16 21:30 (Zofran Odt) 4 mg Q6H PRN PO 08/20/16 21:30 (Mylicon Chew) 80 mg PCHS PRN CHEW 08/21/16 12:45 (Clay Moore MD R1) Assessment/Plan Problem List: (1) Pre-eclampsia Assessment and Plan 20 yo female s/p vaginal delivery after induction for preeclampsia PPD 2. She delivered on 08/20/2016 at approximately 21:00 hours. - complicated by preeclampsia. S/P Mg SO4 - bleeding: H/H stable around 8. Will monitor for symptoms - AFVSS - Motrin and Percocet PRN pain - Pelvic rest x 6 wks - Contraception: Will discuss with provider Cherry Wellington Anticipate D/C 08/23/16 keri Antonio (Clay Moore MD R1) Attending Attestation -Pt seen and examined, ambulating well. -+ Flatus -plans to breastfeed -monitor BP overnight and d/c home in AM (Mary Antonio MD) Clay Moore MD R1 August 22, 2016 08:43 Mary Antonio MD August 22, 2016 09:20
[2016-08-22] MEDS: DEXTROAMPHETAMINE/AMPHETAMINE 30 MG TAB PO SCH (09:16)
[2016-08-22] MEDS: DEXTROAMPHETAMINE/AMPHETAMINE 10 MG TAB PO SCH (15:45)
[2016-08-22] MEDS: SERTRALINE HCL 50 MG TAB PO SCH (21:02)
[2016-08-22 23:45] VITALS: BP 140/86; PULSE 109; RESP 17
[2016-08-23 07:50] VITALS: BP 114/99; PULSE 119; RESP 20; TEMP 98.6
[2016-08-23 07:52] VITALS: BP 167/95
--- NOTE | 2016-08-23 08:08 | HHI.OB ---
Subjective Post Day: 3 Remarks Pt seen and examined this morning. day # 3 AFVSS overnight. Decreased lochia. Denies dysuria. No breast tenderness. She is feeding the baby via bottle, but would like to breast feed eventually. Baby is currently in the NICU. Appetite good. No nausea or vomiting. Has had BM. Ambulating well. Denies calf pain or shortness of breath. Otherwise, she is doing well this morning and has no other concerns. Objective Vitals/I&O Vital Signs Date Time Temp Pulse Resp B/P Pulse Ox O2 Delivery O2 Flow Rate FiO2 08/22/16 23:45 109 17 140/86 Objective Remarks GENERAL: Well-nourished, well-developed patient. CARDIOVASCULAR: Regular rate and rhythm. Soft II/ blowing MARIBEL at LUSB. RESPIRATORY: Breath sounds equal bilaterally. No accessory muscle use. ABDOMEN/GI: Abdomen soft, non-tender. Fundus: Firm, non-tender at umbilicus. GENITOURINARY: Light to moderate bleeding. EXTREMITIES: No cyanosis or edema, non-tender, without signs of DVT. Medications and IVs Current Medications Medications (Trade) Dose Ordered Sig/Farzad Route Start Time Stop Time Status Last Admin (NS Flush) 2 ml UNSCH PRN IV FLUSH 08/19/16 15:00 Sodium Chloride 2 ml 2 ml BID IV FLUSH 08/19/16 21:00 08/21/16 20:31 (Magnesium Sulfate 40 Gm Premix) 1,000 ml @ 25 mls/hr Q24H IV 08/19/16 14:58 08/21/16 13:25 (Calcium Gluconate Inj) 1 gm UNSCH PRN IV PUSH 08/19/16 15:00 (Zofran Inj) 4 mg Q6H PRN IV 08/19/16 15:00 08/20/16 08:31 (Cytotec Supp) 25 mcg Q4H VAGINAL 08/19/16 20:00 08/20/16 04:56 (Zoloft) 50 mg HS PO 08/19/16 21:00 08/22/16 21:02 (Adderall) 30 mg DAILY PO 08/20/16 09:00 08/22/16 09:16 (Adderall) 15 mg DAILY@15 PO 08/19/16 15:00 08/22/16 15:45 Acetaminophen 650 mg 650 mg Q4H PRN PO 08/19/16 21:30 08/20/16 04:59 Lactated Ringer's 1,000 ml @ 125 mls/hr Q8H IV 08/20/16 08:01 08/21/16 09:59 Lactated Ringer's 1,000 ml @ 3,000 mls/hr Q20M PRN IV 08/20/16 08:01 (NS 1000 ml Inj) 1,000 ml @ 100 mls/hr Q10H PRN IV 08/20/16 08:21 (fentaNYL INJ) 50 mcg Q1H PRN IV PUSH 08/20/16 08:15 08/20/16 08:31 (fentaNYL INJ) 100 mcg Q1H PRN IV PUSH 08/20/16 08:15 Mineral Oil 10 ml 10 ml UNSCH PRN TOPICAL 08/20/16 08:15 Oxytocin 500 ml @ 0 mls/hr TITRATE IV 08/20/16 08:15 08/20/16 08:39 (fentaNYL 2MCG-BUPIV 0.125% INJ) 100 ml @ 0 mls/hr TITRATE EPIDURAL 08/20/16 12:00 08/20/16 18:02 (Tylenol) 650 mg Q4H PRN PO 08/20/16 21:30 (Motrin) 600 mg Q6H PRN PO 08/20/16 21:30 08/21/16 05:29 (Percocet 5-325 Mg) 1 tab Q4H PRN PO 08/20/16 21:30 (Percocet 5-325 Mg) 2 tab Q4H PRN PO 08/20/16 21:30 08/21/16 05:30 (Americaine 20% Top Spr) 1 spray Q4H PRN TOPICAL 08/20/16 21:30 (Tucks Pads) 1 applic QID PRN TOPICAL 08/20/16 21:30 (Marti-Colace) 2 tab Q12H PRN PO 08/20/16 21:30 (Ambien) 5 mg HS PRN PO 08/20/16 21:30 (Mag-Al Plus Susp Liq) 15 ml Q8H PRN PO 08/20/16 21:30 (Zofran Odt) 4 mg Q6H PRN PO 5/12/17 21:30 (Mylicon Chew) 80 mg PCHS PRN CHEW 08/21/16 12:45 Assessment/Plan Problem List: (1) Pre-eclampsia Assessment and Plan 20 yo female s/p vaginal delivery after induction for preeclampsia PPD 3. She delivered on 08/20/2016 at approximately 21:00 hours. - complicated by preeclampsia. S/P Mg SO4 - bleeding: H/H stable around 8. Pt is currently asymptomatic. - Vitals have been stable, BP ranging from 130-140s/70-80s - AFVSS - Motrin and Percocet PRN pain - Pelvic rest x 6 wks - Contraception: Will discuss with provider Cherry Cottrell Discharge Planning Anticipate discharge later today. Elizabeth Anguiano MD R2 August 23, 2016 08:08
[2016-08-23] MEDS: DEXTROAMPHETAMINE/AMPHETAMINE 30 MG TAB PO SCH (08:24)
[2016-08-23] MEDS ORDERED: IBUP-232 PO (08:25)
[2016-08-23] MEDS ORDERED: SENN1TAB PO (08:25)
[2016-08-23 08:27] VITALS: BP 143/96
--- NOTE | 2016-08-23 08:27 | HHI.DCPOC ---
Discharge Care Plan Diagnosis: (1) Pre-eclampsia (2) Vaginal delivery Report Symptoms to Your Doctor -Temperate above 100.5 degrees -Redness, of incision or excessive or foul smelling drainage -Unusual pain or calf pain -Increased vaginal bleeding -Painful or difficulty urinating -Feelings of extreme sadness or anxiety after 2 weeks Goals to Promote Your Health * To prevent worsening of your condition and complications * To maintain your health at the optimal level Directions to Meet Your Goals Take your medications as prescribed Follow your dietary instruction Follow activity as directed Ensure plenty of rest for recovery Drink fluids for hydration Keep your appointments as scheduled Take your immunizations and boosters as scheduled If your symptoms worsen call your PCP, if no PCP go to Urgent Care Center or Emergency Room Smoking is Dangerous to Your Health. Avoid second hand smoke Call the 24-hour crisis hotline for domestic abuse at Elizabeth Anguiano MD R2 August 23, 2016 08:27
[2016-09-30] MEDS ORDERED: CLON0.5T PO (09:57)
[2016-09-30] MEDS ORDERED: DEPO150I IM ×2 (10:16→10:17)
[2016-10-01] MEDS ORDERED: DEPO150I (11:04)
== END 2016-08-23 09:06 | disposition home or self-care (01) | DRG 774 ==
LOC: HOBED 12:18 → H2EB 15:49 → H2EA 08-20 22:49 → H1EA 08-20 22:49
PROVIDERS: ADMIT Obstetrics & Gynecology Maternal & Fetal Medicine; ATTEND Obstetrics & Gynecology Maternal & Fetal Medicine
PROC: 10E0XZZ Delivery of Products of Conception, External Approach (ICD-10-PCS; principal; 2016-08-20)
PROC: 0W8NXZZ Division of Female Perineum, External Approach (ICD-10-PCS; 2016-08-20)
PROC: 0T9B70Z Drainage of Bladder with Drainage Device, Via Natural or Artificial Opening (ICD-10-PCS; 2016-08-20)
PROC: 10907ZC Drainage of Amniotic Fluid, Therapeutic from Products of Conception, Via Natural or Artificial Opening (ICD-10-PCS; 2016-08-20)
PROC: 00HU33Z Insertion of Infusion Device into Spinal Canal, Percutaneous Approach (ICD-10-PCS; 2016-08-20)
PROC: 3E0R3CZ (ICD-10-PCS; 2016-08-20)
DX: O14.94 Unspecified pre-eclampsia, complicating childbirth (principal); O72.1 Other immediate postpartum hemorrhage; O99.334 Smoking (tobacco) complicating childbirth; O99.344 Other mental disorders complicating childbirth; F41.9 Anxiety disorder, unspecified; F17.210 Nicotine dependence, cigarettes, uncomplicated; Z3A.37 37 weeks gestation of pregnancy; O76 Abnormality in fetal heart rate and rhythm complicating labor and delivery; Z37.0 Single live birth
CPT/HCPCS: 80053; 81001; 84550; 85025; 85027; 86900; 86901; 87086; 88307; 96365; 96375; J0360; J2405; J2590; J3010; J3475; J7040; J7120